=== PATIENT | female | born 1970 | race Caucasian/White ===

== ENCOUNTER 2021-02-15 10:44 | Observation (INO) | payer BC ==
[2021-02-15] MEDS ORDERED: Diazepam 10 MG/2 ML SYRINGE ONE ×2 (11:16→12:28)
[2021-02-15 11:20] LABS: #Basophils 0.1 thou/uL (0.0-0.2); #Eosinphils 0.1 thou/uL (0.0-0.7); #Monocytes 0.5 thou/uL (0.11-0.59); %Eosinophils 1.2 % (0.0-10.0); %Lymphocytes 30.6 % (21.0-51.0); %Monocytes 7.4 % (0.0-10.0); %Neutrophils 59.9 % (42.0-75.0); Hemoglobin 14.5 g/dL (12.0-16.0); Mean Corpuscular Hemoglobin 35.6 pg (27.0-31.0); Mean Platelet Volume 6.9 fL (7.4-10.4); Platelet Count 301 thou/uL (130-400); RBC Distribution Width 11.6 % (11.5-14.5); Red Blood Cell (RBC) Count 4.08 mill/uL (4.20-5.40); White Blood Cell (WBC) Count 6.7 thou/uL (4.8-10.8)
[2021-02-15 11:46] LABS: ALT (SGPT) 17 U/L (8-55); AST (SGOT) 18 U/L (5-34); Albumin 3.9 g/dL (3.5-5.0); Alkaline Phosphatase 50 U/L (40-110); Anion Gap 13 mmol/L (10-20); BUN (Urea Nitrogen) 6 mg/dL (7.0-18.7); Bilirubin, Total 0.2 mg/dL (0.2-1.2); Calc. Creatinine Clearance 0 mL/min (70-130); Calcium 8.7 mg/dL (7.8-10.44); Carbon Dioxide 18 mmol/L (22-29); Chloride 113 mmol/L (98-107); Globulin 2.7 g/dL (2.4-3.5); Glucose 90 mg/dL (70-105); Potassium 3.9 mmol/L (3.5-5.1); Protein, Total 6.6 g/dL (6.0-8.3); Sodium 140 mmol/L (136-145)
[2021-02-15] MEDS ORDERED: Ketorolac Tromethamine 30 MG/ML VIAL ONE (12:28)
[2021-02-15] MEDS ORDERED: Meclizine HCl 25 MG TAB ONE (13:23)
[2021-02-15] MEDS ORDERED: diphenhydrAMINE 50 MG/ML VIAL ONE (13:44)
[2021-02-15] MEDS ORDERED: Ondansetron PF 4 MG/2 ML Vial ONE (13:44)
[2021-02-15 14:52] LABS: Acetaminophen Less than 6.0 mcg/mL (10.0-30.0); Alcohol 57 mg/dL (Less than 10); Salicylate Less than 8.0 mg/dL (15.0-30.0)
[2021-02-15] MEDS ORDERED: Diazepam 10 MG/2 ML SYRINGE IVP PRN (15:05)
[2021-02-15 15:38] LABS: Bilirubin Negative (Negative); Blood, Urine Negative (Negative); Clarity Clear (Clear); Glucose, Urine (Dipstick) Normal (Negative); Ketone, Urine Trace mg/dL (Negative); Leukocyte Negative Leu/uL (Negative); Nitrite Negative (Negative); Protein, Urine (Dipstick) Negative (Neg-Trace); Specific Gravity, Urine 1.012 (1.002-1.036); Urobilinogen Normal mg/dL (Less than 2)
[2021-02-15 15:48] LABS: Amphetamine Not Detected (NotDetected); Barbiturates Screen Not Detected (NotDetected); Benzodiazepine Screen Not Detected (NotDetected); Cocaine Metabolite Screen Not Detected (NotDetected); Methadone Not Detected (NotDetected); Methamphetamine Not Detected (NotDetected); Opiate Screen Not Detected (NotDetected); Oxycodone Screen Not Detected (NotDetected); Phencyclidine (PCP) Not Detected (NotDetected); THC/Cannabinoid Screen Not Detected (NotDetected); Tricyclic Screen Not Detected (NotDetected)
[2021-02-15] MEDS: Sodium Chloride 0.9% 1,000 ML IV SCH (18:37)
[2021-02-15] MEDS: Acetaminophen 325 MG TAB PO PRN (20:17)
[2021-02-15] MEDS: Ondansetron PF 4 MG/2 ML Vial IVP PRN (20:28)
[2021-02-15 21:15] LABS: SARS-CoV-2 PCR by NAA Not Detected (NotDetected)
[2021-02-15] MEDS: Meclizine HCl 25 MG TAB PO PRN (23:51)
[2021-02-16] MEDS: Sodium Chloride 0.9% 1,000 ML IV SCH ×3 (02:45→15:00)
[2021-02-16 04:37] LABS: #Eosinphils 0.1 thou/uL (0.0-0.7); #Lymphocytes 2.6 thou/uL (1.20-3.40); #Monocytes 0.5 thou/uL (0.11-0.59); #Neutrophils 4.7 thou/uL (1.40-6.50); %Basophils 0.5 % (0.0-1.0); %Eosinophils 1.8 % (0.0-10.0); %Lymphocytes 32.3 % (21.0-51.0); %Monocytes 6.7 % (0.0-10.0); %Neutrophils 58.6 % (42.0-75.0); Hemoglobin 12.4 g/dL (12.0-16.0); Mean Corpuscular HGB CONC 33.9 g/dL (32.0-36.0); Mean Corpuscular Hemoglobin 34.8 pg (27.0-31.0); Platelet Count 252 thou/uL (130-400); RBC Distribution Width 11.6 % (11.5-14.5); Red Blood Cell (RBC) Count 3.56 mill/uL (4.20-5.40)
[2021-02-16 04:46] LABS: Anion Gap 7 mmol/L (10-20); BUN (Urea Nitrogen) 7 mg/dL (7.0-18.7); Calc. Creatinine Clearance 109 mL/min (70-130); Calcium 7.5 mg/dL (7.8-10.44); Carbon Dioxide 23 mmol/L (22-29); Chloride 112 mmol/L (98-107); Glucose 86 mg/dL (70-105); Potassium 3.5 mmol/L (3.5-5.1); Sodium 138 mmol/L (136-145)
[2021-02-16] MEDS: Multivitamin W/ Minerals 1 TAB PO SCH (07:57)
[2021-02-16] MEDS: Magnesium Oxide 400 MG TAB PO SCH (07:57)
[2021-02-16] MEDS: Thiamine 100 MG TAB PO SCH (07:57)
[2021-02-16] MEDS: Folic Acid 1 MG TAB PO SCH (07:57)
[2021-02-16] MEDS: Acetaminophen 325 MG TAB PO PRN (09:11)
[2021-02-16] MEDS: Meclizine HCl 25 MG TAB PO PRN (09:12)
[2021-02-16] MEDS ORDERED: Meclizine HCl 25 MG TAB PO SCH (10:45)
[2021-02-16] MEDS: Ondansetron PF 4 MG/2 ML Vial IVP PRN (11:51)
[2021-02-16] MEDS: Meclizine HCl 25 MG TAB PO SCH ×2 (14:55→23:17)
[2021-02-16] MEDS ORDERED: predniSONE 20 MG TAB PO SCH (17:00)
[2021-02-16 18:50] VITALS: BMI 28.7
[2021-02-16] MEDS: Thyroid 30 MG TAB PO SCH (23:17)
[2021-02-17] MEDS: Acetaminophen 325 MG TAB PO PRN (00:36)
[2021-02-17] MEDS: Sodium Chloride 0.9% 1,000 ML IV SCH ×2 (00:38→11:08)
[2021-02-17 05:25] VITALS: TEMP 97.7
[2021-02-17] MEDS: Meclizine HCl 25 MG TAB PO SCH ×2 (07:43→13:59)
[2021-02-17] MEDS ORDERED: predniSONE 20 MG TAB PO SCH (08:00)
[2021-02-17 08:18] VITALS: BP 101/64
[2021-02-17] MEDS ORDERED: Lactinex Tablet PO SCH (09:00)
[2021-02-17] MEDS ORDERED: Progesterone,Micronized 100 MG CAP PO SCH (09:00)
[2021-02-17] MEDS: Folic Acid 1 MG TAB PO SCH (09:17)
[2021-02-17] MEDS: Magnesium Oxide 400 MG TAB PO SCH (09:17)
[2021-02-17] MEDS: Thiamine 100 MG TAB PO SCH (09:17)
[2021-02-17] MEDS: Multivitamin W/ Minerals 1 TAB PO SCH (09:17)
[2021-02-17] MEDS: Thyroid 30 MG TAB PO SCH (09:18)
[2021-02-17] MEDS ORDERED: Meclizine HCl 12.5 MG TAB PO PRN (14:12)
[2021-02-17] MEDS ORDERED: Calcium Gluconate 4.6 MEQ in Sodium Chloride 0.9% 100 ML IVPB SCH (16:30)
== END 2021-02-17 18:09 | disposition home or self-care (01) ==
LOC: ERS 10:44 → ERHOLD 14:28 → 2NO 17:13 → T4-B 02-16 17:56
PROVIDERS: ADMIT Family Medicine; ATTEND Internal Medicine
DX: H81.20 Vestibular neuronitis, unspecified ear (principal); E83.51 Hypocalcemia; E03.9 Hypothyroidism, unspecified; E87.2 Acidosis; R33.9 Retention of urine, unspecified; Z20.822 Contact with and (suspected) exposure to COVID-19; Z88.5 Allergy status to narcotic agent; Z79.890 Hormone replacement therapy; Z79.899 Other long term (current) drug therapy
CPT/HCPCS: 36415; 70450; 70551; 71045; 80048; 80053; 80306; 80307; 81003; 84443; 84484; 85025; 93005; 96374; 96375; 96376; G0378; J1200; J1885; J2001; J2405; J3360; J3490; J7512; U0003; U0005